=== PATIENT | male | born 1965 | race American Indian/Alaskan Native ===

== ENCOUNTER 2019-05-06 09:22 | Day surgery (SDC) | payer OTHER ==
[2019-05-06] MEDS ORDERED: NACL 0.9% 1000 ML 1,000 ML IV SCH (11:00)
[2019-05-06] MEDS ORDERED: VERSED ONE (11:08)
[2019-05-06] MEDS ORDERED: DIPRIVAN 10 MG/ML IV ONE ×2 (11:09)
[2019-05-06] MEDS ORDERED: XYLOCAINE MPF 2% ONE (11:30)
[2019-05-06] MEDS ORDERED: ANCEF/STERILE WATER 2 GM/20 ML 2 GM/20 ML SYRINGE IV ONE (11:30)
[2019-05-06] MEDS ORDERED: ANCEF/STERILE WATER 2 GM/20 ML 2 GM/20 ML SYRINGE IV NR (12:00)
--- NOTE | 2019-05-06 12:11 | Procedure Note ---
Date of procedure: 05/06/19 Pre-op diagnosis: Colon Polyp Screening Post-op diagnosis: other (No Colon Polyp or Diverticular Disease noted/Minor,Internal Hemorrhoid/ Prep was Sub-optimal with porr to fair visualization) Procedure: Colonoscopy Anesthesia: MAC Surgeon: TOMASZ NICKERSON Estimated blood loss: none Pathology: none Condition: stable Disposition: same day (Resume home medication and follow up in 1 to 2 weeks ([phone]).)
--- NOTE | 2019-05-06 12:21 | Operative Report ---
PROCEDURE PERFORMED: Colonoscopy. INDICATIONS: This is a 54-year-old -[place] gentleman with an underlying history of diabetes, hypertension, a prosthetic aortic heart valve, who has end-stage renal disease and is on dialysis and may be a candidate for a kidney transplant. He also has a left below knee amputation. Colonoscopy was done as part of colon polyp screening and as workup prior to his possible kidney transplant. DESCRIPTION OF PROCEDURE: The procedure was done after getting informed consent with MAC anesthesia. Initial rectal exam was unremarkable. Instrument was passed through the rectum onto the cecum, which was identified with ileocecal valve and the appendiceal orifice. Visualization was fair to poor. He had a suboptimal prep. The mucosa was washed with copious amounts of water. No significant pathology could be seen, although the vision was limited either in the cecum, ascending colon, transverse colon, descending colon, and sigmoid. There was no evidence of any polyps, colitis or diverticular disease and the rectum showed some minor internal hemorrhoid on the retroverted view. There were no biopsies associated with the procedure. No bleeding associated with the procedure. No complications associated with the procedure. Procedure was done in the GI lab in the presence and assist with the assistance of the GI lab team, which included Yareli FOLEY and Pete marin as well as the assistance of anesthesia throughout the entirety of the procedure ASSESSMENT: Colon polyp screening, no colon polyps or diverticular disease noted. Minor internal hemorrhoid. Prep was suboptimal with poor to fair visualization. Again, there was no bleeding or complications associated with the procedure. The patient will be asked to follow up in the office in 1-2 weeks' time. Again, the procedure was done in the presence of Yareli FOLEY and Pete marin. JOB# [id number] MAHIN/ANGELINA
[2019-05-06 13:10] VITALS: BP 138/58
--- NOTE | 2019-05-06 15:32 | Anesthesia Consultation ---
Anesthesia Consult and Med Hx Date of service: 05/06/19 - Airway Anesthetic Teeth Evaluation: Good ROM Head & Neck: Adequate Mental/Hyoid Distance: Adequate Mallampati Class: Class III Intubation Access Assessment: Possibly Difficult - Pulmonary Exam CTA: Yes - Cardiac Exam Cardiac Exam: RRR - Pre-Operative Health Status ASA Pre-Surgery Classification: ASA3 Proposed Anesthetic Plan: MAC - Pulmonary Hx Smoking: No Hx Respiratory Symptoms: No - Cardiovascular System Hx Hypertension: Yes Hx Heart Attack/AMI: No Hx Percutaneous Transluminal Coronary Angioplasty (PTCA): No Hx Cardia Arrhythmia: No Hx Valvular Heart Disease: Yes (a/p AVR 2008; last dose plavix 2 days ago) - Central Nervous System Hx Seizures: No CVA: No - Gastrointestinal Hx Gastroesophageal Reflux Disease: No - Endocrine Hx End Stage Renal Disease: Yes (last HD 05/05/19) Hx Liver Disease: No Hx Insulin Dependent Diabetes: Yes Hx Thyroid Disease: No - Other Systems Hx Obesity: No
--- NOTE | 2019-05-06 15:32 | Anesthesia Day of Surgery ---
Anesthesia Day of Surgery - Day of Surgery Patient Examined: Yes Patient H&P Reviewed: Yes Patient is NPO: Yes
== END 2019-05-06 09:23 | disposition home or self-care (01) ==
LOC: GIO 09:22
DX: Z12.11 Encounter for screening for malignant neoplasm of colon (principal); K64.8 Other hemorrhoids; I12.0 Hypertensive chronic kidney disease with stage 5 chronic kidney disease or end stage renal disease; E11.22 Type 2 diabetes mellitus with diabetic chronic kidney disease; N18.6 End stage renal disease; Z95.2 Presence of prosthetic heart valve; Z94.0 Kidney transplant status; Z98.890 Other specified postprocedural states; Z79.899 Other long term (current) drug therapy; Z79.82 Long term (current) use of aspirin; Z88.8 Allergy status to other drugs, medicaments and biological substances
CPT/HCPCS: 45378; 82962; J0690; J2250; J2704; J7030

== ENCOUNTER 2020-03-02 07:11 | Day surgery (SDC) | payer OTHER ==
[2020-03-02] MEDS ORDERED: WATER FOR IRRIG STERILE 250 ML BOTTLE IR ONE (07:29)
[2020-03-02] MEDS ORDERED: WATER FOR IRRIG STERILE 1,000 ML BOTTLE ONE (07:29)
--- NOTE | 2020-03-02 07:39 | Anesthesia Consultation ---
Anesthesia Consult and Med Hx Date of service: 03/02/20 - Airway Anesthetic Teeth Evaluation: Good, Caps ROM Head & Neck: Adequate Mental/Hyoid Distance: Adequate Mallampati Class: Class II Intubation Access Assessment: Probably Good - Pre-Operative Health Status ASA Pre-Surgery Classification: ASA3 Proposed Anesthetic Plan: MAC - Pulmonary Hx Smoking: No Hx Respiratory Symptoms: No - Cardiovascular System Hx Hypertension: Yes (off meds) Hx Heart Attack/AMI: No Hx Percutaneous Transluminal Coronary Angioplasty (PTCA): No Hx Cardia Arrhythmia: No Hx Valvular Heart Disease: Yes (a/p AVR 2008; last dose plavix 2 days ago) Hx Peripheral Vascular Disease: Yes (s/p left AKA) - Central Nervous System Hx Seizures: No CVA: No - Gastrointestinal Hx Gastroesophageal Reflux Disease: No - Endocrine Hx Renal Disease: Yes Hx End Stage Renal Disease: Yes (last HD 03/01/20) Hx Liver Disease: No Hx Insulin Dependent Diabetes: Yes (off meds) Hx Thyroid Disease: No - Other Systems Hx Obesity: No
--- NOTE | 2020-03-02 07:40 | Anesthesia Day of Surgery ---
Anesthesia Day of Surgery - Day of Surgery Patient Examined: Yes Patient H&P Reviewed: Yes Patient is NPO: Yes
[2020-03-02] MEDS ORDERED: AMPICILLIN 2 GM in SODIUM CHLORIDE 0.9% 50 ML IV ONE (07:53)
[2020-03-02] MEDS ORDERED: SODIUM CHLORIDE 0.9% 1000 ML 1,000 ML IV SCH (08:00)
[2020-03-02] MEDS ORDERED: propofoL 200 MG/20 ML VIAL IV ONE ×2 (08:01)
[2020-03-02] MEDS ORDERED: GENTAMICIN 80 MG in SODIUM CHLORIDE 0.9% 100 ML IV ONE (08:15)
[2020-03-02] MEDS ORDERED: GENTAMICIN 40 MG/ML VIAL 2 ML ONE (08:19)
[2020-03-02] MEDS ORDERED: SODIUM CHLORIDE 0.9% 100 ML ONE (08:21)
[2020-03-02] MEDS ORDERED: AMPICILLIN/NS 2 GM/100 ML 2 GM/100 ML BAG IV SCH (09:00)
[2020-03-02] MEDS ORDERED: GENTAMICIN/NS 80 MG/100 ML 100 ML IV ONE (09:00)
--- NOTE | 2020-03-02 09:23 | Procedure Note ---
Date of procedure: 03/02/20 Pre-op diagnosis: Colon Polyp Screening Post-op diagnosis: other (Solitary,Cecal Polyp/ Minor,Internal Hemorrhoid) Procedure: Colonoscopy with Cold Snare Polypectomy Anesthesia: MAC Surgeon: TOMASZ NICKERSON Estimated blood loss: minimal Pathology: list Specimen disposition: to lab Condition: stable Disposition: same day (Resume home medication but avoid aspirin and NSAID for 4 days. follow up in 1 to 2 weeks ([phone]).)
--- NOTE | 2020-03-02 09:26 | Operative Report ---
PROCEDURE: Colonoscopy with snare polypectomy. INDICATIONS: A 55-year-old -[place] gentleman who has a strong family history of cancer. Colonoscopy was reattempted since the initial colonoscopy had suboptimal prep. The procedure was done after getting informed consent with MAC anesthesia. Initial rectal exam was unremarkable. Instrument was passed through the rectum onto the cecum, which was identified with ileocecal valve and appendiceal orifice. Visualization was fair. The mucosa was washed with copious amounts of water. There was a 9-10 mm polyp noted in the cecum that was removed by cold snare polypectomy. The remaining part of the cecum, ascending colon, transverse colon, descending colon, and sigmoid showed normal mucosa. There was no evidence of any polyps, colitis or diverticular disease and the rectum showed minor internal hemorrhoid on the retroverted view. ASSESSMENT: Colon polyp screening, family history of cancer, cecal polyp that was removed by cold snare polypectomy, minor internal hemorrhoid. No diverticular disease noted. Again, there was minimal bleeding from the polypectomy site and no complications associated with the procedure. PLAN: To encourage the patient to have the patient resume home medication, but to avoid aspirin and aspirin-related products for the next 3-4 days and follow up in the office in 1-2 weeks' time. JOB# [id number] MAHIN/ANGELINA
[2020-03-02] MEDS ORDERED: LIDOCAINE MPF (2%) 20 MG/1 ML VIAL 5 ML ONE (09:30)
[2020-03-02] MEDS ORDERED: INSULIN REGULAR, HUMAN 100 UNITS/1 ML IV ONE (09:40)
[2020-03-02] MEDS ORDERED: INSULIN REGULAR, HUMAN 100 UNITS/1 ML ONE (09:50)
[2020-03-02 10:08] VITALS: BP 159/54
--- NOTE | 2020-03-02 12:39 | Post Anesthesia Evaluation ---
- Post Anesthesia Evaluation Patient Participated: Yes Airway Patent: Yes Stable Respiratory Function: Yes Nausea/Vomiting: No Temp > 96.8F: Yes Pain Manageable: Yes Adequeate Hydration: Yes Anesthesia Complications: No
== END 2020-03-02 07:12 | disposition home or self-care (01) ==
LOC: GIO 07:11
DX: Z12.11 Encounter for screening for malignant neoplasm of colon (principal); D12.0 Benign neoplasm of cecum; K64.8 Other hemorrhoids; I12.0 Hypertensive chronic kidney disease with stage 5 chronic kidney disease or end stage renal disease; E11.22 Type 2 diabetes mellitus with diabetic chronic kidney disease; N18.6 End stage renal disease; E11.51 Type 2 diabetes mellitus with diabetic peripheral angiopathy without gangrene; Z98.41 Cataract extraction status, right eye; Z98.42 Cataract extraction status, left eye; Z79.899 Other long term (current) drug therapy; Z79.82 Long term (current) use of aspirin; Z80.0 Family history of malignant neoplasm of digestive organs; Z95.2 Presence of prosthetic heart valve; Z98.890 Other specified postprocedural states; Z88.8 Allergy status to other drugs, medicaments and biological substances
CPT/HCPCS: 45385; 82962; 88305; J0290; J1580; J2704; J7030; J1815